=== PATIENT | female | born 1960 | race Two or more races ===

== ENCOUNTER 2024-12-31 00:24 | Emergency (ER) | payer OTHER, SELFPAY ==
[2024-12-31 00:36] VITALS: BP 133/61; PULSE 70; TEMP 36.9; O2SAT 95
--- NOTE | 2024-12-31 00:43 | PC.NURSE ---
this patient complains of left wrist pain from a fall backwards tonight while at work. this patient extended left arm backwards to brace her fall, this patient landed on her back hitting her head, but no LOC father this fall. this patient speaks [place] only, her son brought her here also works at the same place and was working tonight her tonight . I asked this patient is she would like a med surg nurse, but patient requesting her son to translate for her.
--- NOTE | 2024-12-31 00:44 | ED.UPPEXIN1 ---
HPI HPI - Extremity Injury (Upper) General Chief Complaint: Extremity Injury, Upper Stated Complaint: FALL BACK PAIN Time Seen by Provider: 12/31/24 00:27 Source: patient Mode of arrival: walk-in Limitations: language barrier History of Present Illness HPI narrative: cc - left wrist injury Her son translates as the pt does not understand or speak [place] and she did not want to use a maintenance mechanic technician. Pt fell about one hour ago, tripped and fell back and to the left. She tried to use her left arm to break her fall and in doing so injured her left wrist. She dened any LOC after the fall. Initially she had some discomfort in the back after the fall but denies any now. Related Data Home Medications ?Medication ?Instructions ?Recorded ?Confirmed No Known Home Medications 12/31/24 12/31/24 Allergies Allergy/AdvReac Type Severity Reaction Status Date / Time No Known Drug Allergies Allergy Verified 12/31/24 00:36 Opioid HPI Opioid Management Most Recent Pain and Opioid Data: No Data to Display PFSH PFSH Social History Little interest or pleasure in doing things: not at all Feeling down, depressed, or hopeless: not at all Exam Narrative Exam Narrative: Nurses note and vital signs reviewed and patient is not hypoxic. afebrile General: The patient appears well and in no apparent distress. Patient is resting comfortably on cart. GCS = 15. Skin: Warm, dry, no pallor noted. Head: Normocephalic, atraumatic -nontender in the occiput where she may have struck the floor Neck: Supple, trachea mid-line, no tenderness, no lymphadenopathy. Full ROM and no cervical spinal tenderness. The patient has no step-offs or crepitus noted Eyes: PERRLA, EOMI ENT: No facial or oral injury Cardiovascular: Regular Rate and Rhythm Respiratory: Patient is in no distress, no accessory muscle use, lungs are clear to auscultation, no wheezing, rales or rhonchi Chest Wall: no tenderness, no flail chest, contusion, abrasion, or signs of trauma. Back: No thoracic vertebral or lumbar vertebral tenderness to palpation. Musculoskeletal: Tenderness, limited range of motion secondary to pain and mild swelling noted at the left wrist especially distal left radius. Left hand, remainder of the forearm, left elbow, left upper arm and left shoulder are with normal range of motion, no tenderness or swelling and no pain with movement. No left scapular, trapezius or clavicular pain on palpation. no additional sign of long bone fracture, no tenderness, no swelling. Pulses at femoral, DP, PT, and popiteal were 2+ bilaterally. Moves all four extremities in all modalities with 5/5 strength. GI: Normal bowel sounds, no tenderness to palpation, no masses appreciated. No rebound, guarding, or rigidity noted. Neurological: A&O x4, normal speech, normal coordination, normal motor, normal sensory. Psychiatric: Cooperative Constitutional Vital Signs, click to edit/add: Last Vital Signs Temp 98.4 F 12/31/24 00:36 Pulse 70 12/31/24 00:36 Resp 19 12/31/24 00:36 BP 133/61 12/31/24 00:36 Pulse Ox 95 12/31/24 00:36 O2 Del Method Room Air 12/31/24 00:36 Course Vital Signs Vital signs: Vital Signs Temperature 98.4 F 12/31/24 00:36 Pulse Rate 70 12/31/24 00:36 Respiratory Rate 19 12/31/24 00:36 Blood Pressure 133/61 12/31/24 00:36 Pulse Oximetry 95 12/31/24 00:36 Oxygen Delivery Method Room Air 12/31/24 00:36 Temperature 98.4 F 12/31/24 00:36 Pulse Rate 70 12/31/24 00:36 Respiratory Rate 19 12/31/24 00:36 Blood Pressure 133/61 12/31/24 00:36 Pulse Oximetry 95 12/31/24 00:36 Oxygen Delivery Method Room Air 12/31/24 00:36 MDM - Extremity Injury (Upper) MDM Narrative Medical decision making narrative: X-rays of the left wrist did not reveal any acute fracture at the base of the left hand, left wrist or left forearm. I asked the ED nurse to apply a Velcro adjustable splint to the patient's left wrist Patient discharged home with recommendation to take Tylenol and ibuprofen for pain Imaging Data xr left wrist: Attestation: I personally reviewed and interpreted this imaging study as follows: My impression: No acute fracture, subluxation or other acute bony abnormality noted on the x-rays of the left wrist Discharge Plan Discharge Chief Complaint: Extremity Injury, Upper Clinical Impression: Sprain and strain of wrist Patient Disposition: Home, Self-Care Time of Disposition Decision: 01:07 Prescriptions / Home Meds: No Action No Known Home Medications Print Language: [place] Instructions: Wrist Sprain (ED) Referrals: Physician,Non-Staff, MD [Primary Care Provider] - 1 week
[2024-12-31] MEDS: IBUPROFEN 600 MG TABLET PO (00:58)
--- NOTE | 2024-12-31 01:21 | PC.NURSE ---
i gave this patient verbal and written discharge orders along workers compensation papers. at time of discharge this patient nor her son voices no concerns and this patient shows no signs of distress. i did applied a wrist splint of this patient's left wrist prior to discharge
== END 2024-12-31 01:24 | disposition home or self-care (01) ==
PROVIDERS: Emergency Provider Emergency Medicine
DX: S63.502A Unspecified sprain of left wrist, initial encounter (principal); S66.912A Strain of unspecified muscle, fascia and tendon at wrist and hand level, left hand, initial encounter; W19.XXXA Unspecified fall, initial encounter
CPT/HCPCS: 73110; 99283